=== PATIENT | female | born 1960 | race Caucasian/White ===

== ENCOUNTER 2022-04-18 09:20 | Inpatient (IN) | payer MEDICARE, MEDICAID ==
[2022-04-12 14:55] LABS: BASOPHILS # (AUTO) 0.1 X10'3 (0-0.2); BASOPHILS % (AUTO) 0.8 % (0-1); EOSINOPHILS # (AUTO) 0.1 X10'3 (0-0.9); EOSINOPHILS % (AUTO) 1.4 % (0-6); LYMPHOCYTES # (AUTO) 2.7 X10'3 (1.1-4.8); LYMPHOCYTES % (AUTO) 38.7 % (21-51); MEAN CORPUSCULAR HEMOGLOBIN 33.3 PG (27.0-31.0); MEAN CORPUSCULAR HGB CONC 33.5 g/dL (33.0-36.5); MEAN CORPUSCULAR VOLUME 99.4 FL (78-98); MEAN PLATELET VOLUME 6.5 FL (7.4-10.4); MONOCYTES # (AUTO) 0.5 X10'3 (0-0.9); MONOCYTES % (AUTO) 7.3 % (2-12); NEUTROPHILS # (AUTO) 3.6 X10'3 (1.8-7.7); NEUTROPHILS % (AUTO) 51.8 % (42-75); PRE OP HEMATOCRIT 43.1 % (35.0-45.0); PRE OP HEMOGLOBIN 14.4 g/dL (12.0-16.0); PRE OP PLATELET COUNT 295 X10'3 (140-440); RED BLOOD COUNT 4.33 X10'6 (4.20-5.60); RED CELL DISTRIBUTION WIDTH 13.9 % (11.5-14.5)
[2022-04-12 15:12] LABS: ALBUMIN 3.8 G/DL (3.4-5.0); ALBUMIN/GLOBULIN RATIO 1.2 (1.1-1.5); ALKALINE PHOSPHATASE 173 IU/L (46-116); BLOOD UREA NITROGEN 5 MG/DL (7-18); BUN/CREATININE RATIO 7.2 (6.6-38.0); CALCIUM 8.8 MG/DL (8.5-10.1); CHLORIDE 100 MMOL/L (99-107); CREATININE 0.69 MG/DL (0.40-0.90); PRE OP ALT 20 U/L (30-65); PRE OP ANION GAP 6 (8-16); PRE OP AST 36 U/L (10-37); PRE OP BILIRUB, TOTAL 0.3 MG/DL (0.0-1.0); PRE OP GLUCOSE 84 MG/DL (70-104); PRE OP POTASSIUM 4.2 MMOL/L (3.4-5.1); PRE OP SODIUM 137 MMOL/L (135-145); TOTAL CARBON DIOXIDE 31.5 MMOL/L (24-32); TOTAL PROTEIN 7.1 G/DL (6.4-8.2); eGFR 86 ML/MIN
[2022-04-18] VITALS (17 sets, daily range): BP systolic 117–158; BP diastolic 44–102
[~2022-04-18] VITALS: Ht 160 cm; Wt 50.5 kg
[~2022-04-18 09:20] MED LIST: ALBU18HF2 INH; ALLO100T PO; ASCO500T28 PO; ASPI1TAB9; CARI-75 PO; CHOL100025 PO; CIME200T95 PO; DULO60CA59 PO; ESTR1CAP TOP; FLO0.4C PO; FLUT250D INH; GABA300C PO; GARL1000 PO; GINK120C PO; HYDR-3972 PO; K2 PO; LACT1CAP65 PO; MAGN400C PO; MELA10TA PO; MONT10TA21 PO; MORP30TA60 PO; MULT-1085 PO; ROPIVAcaine 0.5% (5mg/ml) 30ml vial ONE; TURM500C4 PO; ZINC50TA67 PO; [UNRECOGNIZED DRUG - OTHER] PO; albuterol 2.5 MG/3 ML nebule NEB ONE; ceFAZolin inj. 2,000 MG in dextrose 5%-water 100 ML IV ONE; famotidine 20mg tablet PO ONE; ringers solution, lacted 1,000 ML IV SCH; tranexamic acid 650mg tablet PO ONE; vancomycin/NS 1 GM in NS 250 ML IV ONE
[2022-04-18] MEDS ORDERED: morphine 4 MG/ML inj SYRINge IV PRN (13:20)
[2022-04-18] MEDS ORDERED: ROPIVAcaine 0.2%/PF PUMP/bolus 545 ML POPLITEAL SCH (13:20)
[2022-04-18] MEDS ORDERED: hydrALAZINE 20mg/ml inj. IV PRN (13:20)
[2022-04-18] MEDS ORDERED: ROPIVAcaine 0.2%/PF PUMP/bolus 545 ML INTERSCALE SCH (13:20)
[2022-04-18] MEDS ORDERED: ROPIVAcaine 0.2% (10 MG/5 ML) BOLUS INJECTION POPLITEAL PRN (13:20)
[2022-04-18] MEDS ORDERED: labetalol 20mg/4ml (5mg/ml) syringe IV PRN (13:20)
[2022-04-18] MEDS ORDERED: ringers solution, lacted 1,000 ML IV SCH (13:20)
[2022-04-18] MEDS ORDERED: morphine 2 MG/ML inj. syringe IV PRN (13:20)
[2022-04-18] MEDS ORDERED: ROPIVAcaine 0.2% (10 MG/5 ML) BOLUS INJECTION INTERSCALE PRN (13:20)
[2022-04-18] MEDS ORDERED: fentaNYL/PF 50MCG/1 ML 2ML syringe IV PRN ×2 (13:20)
[2022-04-18] MEDS ORDERED: ondansetron/PF 4mg/2ml inj IV PRN ×2 (13:20→17:10)
[2022-04-18] MEDS ORDERED: BUPIVAcaine/PF 2.5 mg/ml (0.25%) 30ml vial ONE (13:37)
[2022-04-18] MEDS ORDERED: ketorolac trometh. 30mg/ml inj. ONE (13:37)
[2022-04-18] MEDS ORDERED: ROPIVAcaine 0.5% (5mg/ml) 30ml vial ONE ×2 (13:59→14:14)
[2022-04-18] MEDS ORDERED: fentaNYL/PF 50MCG/1 ML 2ML syringe ONE ×3 (14:27→16:54)
[2022-04-18] MEDS ORDERED: midazolam 1 mg/ML 2ml injection ONE (14:27)
[2022-04-18] MEDS ORDERED: propofol inj 20 ML IV ONE (14:28)
[2022-04-18] MEDS ORDERED: LIDOcaine 1%/PF 5ML 10 MG/ML VIAL ONE (14:28)
[2022-04-18] MEDS ORDERED: ondansetron/PF 4mg/2ml inj ONE (14:28)
[2022-04-18] MEDS ORDERED: dexamethasone sod phosphate 10mg/ml inj ONE (15:15)
[2022-04-18] MEDS ORDERED: sevoflurane 250ml liquid IH ONE (15:15)
[2022-04-18] MEDS ORDERED: acetaminophen 1,000mg/100ml IV 100 ML IV ONE (16:16)
[2022-04-18] MEDS ORDERED: HYDROmorphone inj. 0.5 MG/0.5 ML DISP.SYRIN IV PRN (17:10)
[2022-04-18] MEDS ORDERED: HYDROmorphone 1 mg/ml syringe IV PRN (17:10)
[2022-04-18] MEDS ORDERED: naloxone 0.4 mg/ml inj IV PRN (17:10)
[2022-04-18] MEDS ORDERED: acetaminophen 325mg tablet PO PRN (17:10)
[2022-04-18] MEDS ORDERED: bisacodyl 10mg suppository rectal RC PRN (17:10)
[2022-04-18] MEDS ORDERED: magnesium hydroxide 30ml (MOM) UD suspension PO PRN (17:10)
[2022-04-18] MEDS ORDERED: HYDROcodone/acetaminophen 10/325mg tab PO PRN (17:10)
[2022-04-18] MEDS ORDERED: oxyCODONE IR 5mg (immed. release) tablet PO PRN (17:10)
[2022-04-18] MEDS ORDERED: diphenhydrAMINE 25mg capsule PO PRN ×2 (17:10)
--- NOTE | 2022-04-18 18:21 | NUR ---
PT TAKEN TO 4TH FLOOR ROOM 4024C, VERBAL REPORT GIVEN TO VU RN ABOUT PATIENTS LARGE HEALING WOUND ON HER FLANK AREA, THAT SHE ARRIVED FROM HOME WITH. SPOKE WITH PATIENTS AND GAVE HIM HER ROOM NUMBER AND CONDITION. PT CALLED HER UPON ARRIVAL TO HER ROOM.
[2022-04-18] MEDS: potassium cl 20mEq in 1/2 NS 1,000 ML IV SCH (19:14)
[2022-04-18] MEDS ORDERED: morphine ER 30mg tablet PO SCH (20:00)
[2022-04-18] MEDS ORDERED: vancomycin/NS 1 GM ADD-VANTAGE 250 ML IV SCH (20:00)
[2022-04-18] MEDS: budesonide 0.5mg/2ml UD nebule IH SCH (20:41)
[2022-04-18] MEDS: morphine ER 15mg tablet PO SCH (20:50)
[2022-04-18] MEDS ORDERED: sennosides 8.6mg tablet PO SCH (21:00)
[2022-04-18] MEDS ORDERED: allopurinol 100mg tablet PO SCH (21:00)
--- NOTE | 2022-04-18 21:21 | NUR ---
per dr. joshi on-q site swelling and small bruise normal, ok to keep on -q.
[2022-04-18] MEDS: famotidine 20mg tablet PO SCH (21:32)
[2022-04-18] MEDS: oxyCODONE IR 5mg (immed. release) tablet PO PRN (21:33)
[2022-04-18] MEDS: acetaminophen 325mg tablet PO SCH (21:33)
[2022-04-19] MEDS: gabapentin 300mg capsule PO SCH ×2 (00:24→09:52)
[2022-04-19] MEDS: ceFAZolin/D5W- 1GM premix 50 ML IV SCH ×2 (00:26→09:51)
[2022-04-19 02:00] VITALS: BP 141/74
[2022-04-19] MEDS: acetaminophen 325mg tablet PO SCH ×2 (02:44→09:53)
[2022-04-19] MEDS: oxyCODONE IR 5mg (immed. release) tablet PO PRN (02:45)
[2022-04-19] MEDS: potassium cl 20mEq in 1/2 NS 1,000 ML IV SCH (05:14)
[2022-04-19 06:00] VITALS: BP_SYST 141; BP_SYST 155; BP_DIAS 74; BP_DIAS 84
[2022-04-19 06:45] LABS: BASOPHILS % (AUTO) 0.2 % (0-1); EOSINOPHILS % (AUTO) 0 % (0-6); HEMATOCRIT 33.2 % (35.0-45.0); HEMOGLOBIN 11.3 g/dl (12.0-16.0); LYMPHOCYTES # (AUTO) 1.2 X10'3 (1.1-4.8); LYMPHOCYTES % (AUTO) 9.7 % (21-51); MEAN CORPUSCULAR HEMOGLOBIN 34.4 PG (27.0-31.0); MEAN CORPUSCULAR HGB CONC 33.9 g/dL (33.0-36.5); MEAN CORPUSCULAR VOLUME 101.4 FL (78-98); MONOCYTES # (AUTO) 1.1 X10'3 (0-0.9); NEUTROPHILS # (AUTO) 9.6 X10'3 (1.8-7.7); NEUTROPHILS % (AUTO) 81.1 % (42-75); PLATELET COUNT 237 X10'3 (140-440); RED BLOOD COUNT 3.28 X10'6 (4.20-5.60); RED CELL DISTRIBUTION WIDTH 13.7 % (11.5-14.5); WHITE BLOOD COUNT 11.8 X10'3 (4.5-11.0)
[2022-04-19 06:54] LABS: ANION GAP 5 (8-16); CHLORIDE 99 MMOL/L (99-107); POTASSIUM 5.1 MMOL/L (3.5-5.1); SODIUM 131 MMOL/L (135-145); TOTAL CARBON DIOXIDE 26.8 MMOL/L (24-32)
[2022-04-19] MEDS ORDERED: montelukast 10mg tablet PO SCH (08:00)
[2022-04-19] MEDS ORDERED: ascorbic acid 500mg tablet PO SCH (08:00)
[2022-04-19] MEDS ORDERED: lactobacillus rhamnosus 10,000 MMU CELLS/CAPSULE PO SCH (08:00)
[2022-04-19] MEDS ORDERED: cholecalciferol (vitamin D3) 1,000 unit (25mcg) tablet PO SCH (08:00)
[2022-04-19] MEDS ORDERED: [UNRECOGNIZED DRUG - OTHER] PO SCH (08:00)
[2022-04-19] MEDS ORDERED: non-formulary drug (Zinc 1 TAB) PO SCH (08:00)
[2022-04-19] MEDS ORDERED: TYPE IN GENERIC & BRAND NAME OF PATIENT MED STRENGTH & FORM PO SCH (08:00)
[2022-04-19] MEDS ORDERED: multivitamins, therapeutics tablet PO SCH (08:00)
[2022-04-19] MEDS ORDERED: duloxetine 30mg CAPSULE.DR PO SCH (08:00)
[2022-04-19] MEDS ORDERED: GARLIC PO SCH (08:00)
[2022-04-19] MEDS ORDERED: tamsulosin 0.4mg capsule PO SCH (08:00)
[2022-04-19] MEDS ORDERED: magnesium oxide 400mg tablet PO SCH (08:00)
[2022-04-19] MEDS ORDERED: K2 PO SCH (08:00)
[2022-04-19] MEDS ORDERED: aspirin 325mg tablet PO SCH (08:30)
[2022-04-19] MEDS: budesonide 0.5mg/2ml UD nebule IH SCH (08:58)
[2022-04-19] MEDS: famotidine 20mg tablet PO SCH (09:52)
[2022-04-19] MEDS: morphine ER 15mg tablet PO SCH (09:53)
--- NOTE | 2022-04-19 11:40 | NUR ---
Joint surgery consult: Pt s/p L shoulder surgery this admit per EMR. Pt seen by MARILIN for written/verbal high protein ed w/ RD contact information provided. MARILIN encouraged pt to contact dietitian's office if further nutrition questions/concerns. Addendum: 04/19/22 at [address] Amended: Links added.
[2022-04-19] MEDS ORDERED: celeCOXIB 100mg capsule PO SCH ×2 (20:00)
[2022-04-20] MEDS ORDERED: acetaminophen 325mg tablet PO PRN (17:10)
== END 2022-04-19 11:46 | disposition home or self-care (01) | DRG 483 ==
LOC: PAS IN 10:17 → ORTHO 4S 18:55
PROVIDERS: ADMIT Orthopaedic Surgery; ATTEND Orthopaedic Surgery
PROC: 0LS40ZZ Reposition Left Upper Arm Tendon, Open Approach (ICD-10-PCS; 2022-04-18)
PROC: 3E0T3BZ Introduction of Anesthetic Agent into Peripheral Nerves and Plexi, Percutaneous Approach (ICD-10-PCS; 2022-04-18)
PROC: 3E0T33Z Introduction of Anti-inflammatory into Peripheral Nerves and Plexi, Percutaneous Approach (ICD-10-PCS; 2022-04-18)
PROC: 0RRK00Z Replacement of Left Shoulder Joint with Reverse Ball and Socket Synthetic Substitute, Open Approach (ICD-10-PCS; principal; 2022-04-18 15:15)
DX: M19.012 Primary osteoarthritis, left shoulder (principal); M75.122 Complete rotator cuff tear or rupture of left shoulder, not specified as traumatic; M65.812 Other synovitis and tenosynovitis, left shoulder; Z79.899 Other long term (current) drug therapy
CPT/HCPCS: 36415; 73020; 80051; 80053; 82948; 85025; 87081; 94640; 94760; 97110; 97161; 97530; A4215; A4618; A7000; C1776; G0378; J0131; J0690; J1100; J1885; J2250; J2405; J2704; J2795; J3010; J3370; J3480; J3490; J7060; J7120; U0003; U0005